=== PATIENT | female | born 1955 | race Caucasian/White ===

== ENCOUNTER 2020-08-22 09:52 | Emergency (ER) | payer MEDICARE, SELFPAY ==
--- NOTE | 2020-08-22 10:03 | DI.RAD.S_ITS ---
PROCEDURE: XR RIBS RT MIN 3V W CXR 1V INDICATIONS: Right inferior lateral rib pain TECHNIQUE: 2 views of the right ribs were acquired, along with a single view chest. COMPARISON: None. FINDINGS: Limited secondary to motion artifact. Surgical changes and devices: None. Bones and chest wall: No fractures or dislocations. No suspicious bony lesions. Overlying soft tissues appear unremarkable. Lungs and pleura: No pleural effusions or pneumothorax. Lungs appear clear. Mediastinum: Moderate hiatal hernia. Mediastinal contours otherwise appear normal. Heart size is normal. IMPRESSION: 1. Limited examination of the right rib secondary to motion artifact. 2. No definite acute fracture. No osseous lesion. If symptoms and/or clinical suspicion for pathology persist, further assessment with repeat, or advanced imaging (e.g., CT, or bone scan) may be helpful for further assessment. 3. Hiatal hernia. Dictated by: Aman Hernandez M.D. on 08/22/2020 at 10:27 Approved by: Aman Hernandez M.D. on 08/22/2020 at 10:28
[2020-08-22 10:10] VITALS: BP 165/77; PULSE 81; RESP 18; TEMP 36.5; O2SAT 97; BMI 27.3
--- NOTE | 2020-08-22 10:11 | ED_ITS ---
HPI - General Adult General Chief complaint: Back Pain/Injury Stated complaint: 5-6 days ago possibly cracked rib, breathing hurts Time Seen by Provider: 08/22/20 10:03 Source: patient Mode of arrival: Ambulatory Limitations: no limitations History of Present Illness HPI narrative: 65-year-old female here for evaluation of right-sided lower ribs/lower back discomfort. States that the symptoms started several days ago after she spent an extended amount of time on a riding lawnmower trying to mow of field that was very uneven. She states that there were times where she thought that she was potentially going to fall off of them over however there was not 1 specific incident where she thought the event occurred. Since that time she has had discomfort and problems with breathing because it hurts for her to take a deep breath. Does have a bruise on her right flank no blood in the urine. Related Data Home Medications Medication Instructions Recorded Confirmed cholecalciferol (vitamin D3) 25 mcg PO DAILY 01/03/20 06/18/20 [Vitamin D3] coenzyme Q10 [CoQ-10] 30 mg PO DAILY 01/03/20 06/18/20 ferrous sulfate [Slow Fe] 142 mg PO DAILY 01/03/20 06/18/20 [id number]-[id number] 1 cap PO DAILY 01/03/20 06/18/20 [Krill Oil ([place] 3 and 6)] lorazepam [Ativan] 1 mg PO DAILY PRN 01/03/20 06/18/20 multivitamin 1 tab PO DAILY 01/03/20 06/18/20 vitamin K2 40 mcg PO DAILY 01/03/20 06/18/20 Al hyd-Mg tr-alg ac-sod bicarb 1 tab PO PRN PRN 02/14/20 06/18/20 [Gaviscon] Previous Rx's Medication Instructions Recorded acetaminophen-codeine 1 tab PO Q4-6H PRN #10 tab 08/22/20 Allergies Allergy/AdvReac Type Severity Reaction Status Date / Time atenolol Allergy Unknown Verified 02/27/20 14:42 Sulfa (Sulfonamide Allergy Unknown Verified 02/27/20 14:42 Antibiotics) Review of Systems Constitutional Constitutional: Denies fever(s) Cardiovascular Cardiovascular: Denies chest pain Comments: Right-sided rib pain Respiratory Respiratory: Reports pain on inspiration Gastrointestinal Gastrointestinal: Reports system reviewed and no additional complaints, except as documented, Denies nausea and Denies vomiting Genitourinary Genitourinary: Denies hematuria Genitourinary: Denies hematuria Musculoskeletal Comments: Right-sided flank/back discomfort. Integumentary/Breasts Comments: Bruising over the right flank Neurologic Neurologic: Reports system reviewed and no additional complaints, except as documented Hematologic/Lymphatic On Anticoagulants: No Allergic/Immunologic Allergic/Immunologic: Reports system reviewed and no additional complaints, except as documented Patient History Medical History Iron deficiency anemia Surgical History (Updated 04/10/20 @ 16:47 by Reji Chavez MD) History of cardiac radiofrequency ablation Hx of hysterectomy Family History Mother Hypertension Heart disease Stroke Grandfather Diabetes mellitus Social History marital status: household members: spouse occupational status: previously employed Smoking Status: Never smoker alcohol intake: current substance use type: does not use Smoking Status: Never smoker Exam Initial Vital Signs Initial Vital Signs: Vital Signs Temperature 97.7 F 08/22/20 10:10 Pulse Rate 81 08/22/20 10:10 Respiratory Rate 18 08/22/20 10:10 Blood Pressure 165/77 H 08/22/20 10:10 Pulse Oximetry 97 08/22/20 10:10 Const General: cooperative and comfortable Limitations: mental status not altered HENMT Head: normal to inspection Resp Effort & Inspection: normal respiratory effort Auscultation: clear to auscultation bilaterally Cardio Rate: regular rate Rhythm: regular rhythm Skin Other: Bruise over the right posterior axillary line inferior ribs. Neuro General: patient alert, patient awake and patient oriented x3 Cognition: normal cognition Speech: speech normal Extrem General: normal to inspection and capillary refill normal Psych Appearance: grossly normal and well kempt Course Orders Ordered: ED Orders 08/22/20 10:03 XR ribs RT min 3V w CXR1V Stat Vital Signs Vital signs: Vital Signs - 8 hr 08/22/20 10:10 Temperature 97.7 F Pulse Rate 81 Respiratory Rate 18 Blood Pressure 165/77 H Pulse Oximetry 97 Medical Decision Making Imaging Data Rib x-rays: Radiologist's Impression: [address] [id number] ReportSigned Patient: Lissette Cardoso CMR#: [id number]: 5Acct:[id number]/Sex: 65 / FDate of Service: 08/22/20Loc: EDAccession Number: [id number] Procedure: XR ribs RT min 3V w CXR1V Ordering Provider: Kory Bhatti D.O. PROCEDURE: XR RIBS RT MIN 3V W CXR 1V INDICATIONS: Right inferior lateral rib pain TECHNIQUE: 2 views of the right ribs were acquired, along with a single view chest. COMPARISON: None. FINDINGS: Limited secondary to motion artifact. Surgical changes and devices: None. Bones and chest wall: No fractures or dislocations. No suspicious bony lesions. Overlying soft tissues appear unremarkable. Lungs and pleura: No pleural effusions or pneumothorax. Lungs appear clear. Mediastinum: Moderate hiatal hernia. Mediastinal contours otherwise appear normal. Heart size is normal. IMPRESSION: 1. Limited examination of the right rib secondary to motion artifact. 2. No definite acute fracture. No osseous lesion. If symptoms and/or clinical suspicion for pathology persist, further assessment with repeat, or advanced imaging (e.g., CT, or bone scan) may be helpful for further assessment. 3. Hiatal hernia. Dictated by: Aman Hernandez M.D. on 08/22/2020 at 10:27 Approved by: Aman Hernandez M.D. on 08/22/2020 at 10:28 [facility] Narrative Medical decision making narrative: Patient did not have a specific incident that caused her symptoms to happen. She does have bruising on the posterior aspect of the right flank. I suspect that this is a contusion from the bouncing that she did while mowing the field the other day. There were no obvious rib fractures/displaced rib fractures on the x-ray. No underlying lung issues. I did discuss with her the findings of the x-ray. We did discuss the possibility of a nondisplaced rib fracture versus a rib contusion. Will send home with symptom control. We did discuss the importance of deep breathing and coughing to avoid complications such as pneumonia. Patient did expressed understanding and agreement. Discharge Plan Departure Patient Disposition: Home Clinical Impression: Contusion of rib on right side, Contusion of skin Instructions: DI for Rib Contusion Activity Restrictions/Additional Instructions: There were no displaced fractures noted on the x-rays however this does not eliminate the possibility of a nondisplaced fracture. Take the pain medication as needed. Be sure that you occasionally take a deep breath or cough. This will help with preventing pneumonia. If your pain worsens or you start to develop fevers please return to the emergency department. Contact your primary provider for follow-up. Prescriptions: New acetaminophen-codeine 300-30 mg tablet 1 tab PO Q4-6H PRN (Reason: pain) Qty: 10 RF: 0 No Action multivitamin Tablet 1 tab PO DAILY RF: 0 lorazepam [Ativan] 1 mg Tablet 1 mg PO DAILY PRN (Reason: Anxiety) RF: 0 coenzyme Q10 [CoQ-10] 30 mg Capsule 30 mg PO DAILY RF: 0 cholecalciferol (vitamin D3) [Vitamin D3] 25 mcg (1,000 unit) Tablet 25 mcg PO DAILY RF: 0 Krill Oil ([place] 3 and 6) 1000-130(40-80) mg Capsule 1 cap PO DAILY RF: 0 vitamin K2 40 mcg Tablet 40 mcg PO DAILY RF: 0 Slow Fe 142 mg (45 mg iron) Tablet Extended Release 142 mg PO DAILY RF: 0 Gaviscon 80-14.2 mg Tablet,Chewable 1 tab PO PRN PRN (Reason: Abdominal Pain) RF: 0 Referrals: Dell Russell DO [Primary Care Provider] -
[2020-08-22 11:13] VITALS: BP 143/65; PULSE 65; RESP 20; O2SAT 98
[2020-08-22] MEDS: CODEINE/ACETAMINOPHEN 30/300 TABLET 1 TAB PO (11:15)
--- NOTE | 2020-08-23 13:39 | PC.NURSE ---
Provider summary sent to [facility] as pt is there for further care / follow up. [phone]
== END 2020-08-22 11:24 | disposition home or self-care (01) ==
PROVIDERS: Emergency Provider Emergency Medicine; PCP Family Medicine
DX: S20.211A Contusion of right front wall of thorax, initial encounter (principal)
CPT/HCPCS: 71101; 99283

== ENCOUNTER 2020-08-27 12:32 | Emergency (ER) | payer MEDICARE, SELFPAY ==
[2020-08-27 12:48] VITALS: BP 176/106; PULSE 79; RESP 18; TEMP 36.7; O2SAT 100; BMI 27.3
--- NOTE | 2020-08-27 12:51 | ED.BACK ---
HPI - Back Pain/Injury General Chief Complaint: Back Pain/Injury Stated Complaint: BACK RIGHT SIDE RIB PAIN Time Seen by Provider: 08/27/20 12:42 Source: patient Mode of arrival: Ambulatory Limitations: no limitations History of Present Illness HPI Narrative: Patient is a 65-year-old female who was seen by myself in the emergency department just under 1 week ago for evaluation of discomfort in her right-sided ribs after spending an excessive amount of time riding a lawnmower on a bumpy field. There was no one specific incident that caused her discomfort. She did have a bruise over that area. Rib x-rays did not show any signs of fracture. Was sent home with Tylenol 3. Couple days later she was seen by another provider and walk-in clinic and received more these medicines. She returned she emergency department today for continued discomfort but she with palpation movement and deep breathing. Related Data Home Medications Medication Instructions Recorded Confirmed cholecalciferol (vitamin D3) 25 mcg PO DAILY 01/03/20 06/18/20 [Vitamin D3] coenzyme Q10 [CoQ-10] 30 mg PO DAILY 01/03/20 06/18/20 ferrous sulfate [Slow Fe] 142 mg PO DAILY 01/03/20 06/18/20 sitpz-[id number]-avh-ulh-bh0-jpt-astx 1 cap PO DAILY 01/03/20 06/18/20 [Krill Oil ([place] 3 and 6)] lorazepam [Ativan] 1 mg PO DAILY PRN 01/03/20 06/18/20 multivitamin 1 tab PO DAILY 01/03/20 06/18/20 vitamin K2 40 mcg PO DAILY 01/03/20 06/18/20 Al hyd-Mg tr-alg ac-sod bicarb 1 tab PO PRN PRN 02/14/20 06/18/20 [Gaviscon] Previous Rx's Medication Instructions Recorded acetaminophen-codeine 1 tab PO Q4-6H PRN #10 tab 08/22/20 acetaminophen-codeine 1 tab PO Q6H PRN #10 tab 08/27/20 Allergies Allergy/AdvReac Type Severity Reaction Status Date / Time atenolol Allergy Unknown Verified 08/27/20 12:51 Sulfa (Sulfonamide Allergy Unknown Verified 08/27/20 12:51 Antibiotics) Review of Systems Constitutional Constitutional: Reports system reviewed and no additional complaints, except as documented Cardiovascular Cardiovascular: Denies chest pain Respiratory Respiratory: Reports pain on inspiration Gastrointestinal Gastrointestinal: Reports system reviewed and no additional complaints, except as documented Musculoskeletal Comments: Right-sided rib pain Integumentary/Breasts Skin/Breast: Denies rash Neurologic Neurologic: Reports system reviewed and no additional complaints, except as documented Hematologic/Lymphatic Hematologic/Lymphatic: Reports system reviewed and no additional complaints, except as documented Allergic/Immunologic Allergic/Immunologic: Reports system reviewed and no additional complaints, except as documented Patient History Medical History Iron deficiency anemia Surgical History (Updated 04/10/20 @ 16:47 by Reji Chavez MD) History of cardiac radiofrequency ablation Hx of hysterectomy Family History Mother Hypertension Heart disease Stroke Grandfather Diabetes mellitus Social History marital status: household members: spouse occupational status: previously employed Smoking Status: Never smoker alcohol intake: current substance use type: does not use Smoking Status: Never smoker Substance Use Type: does not use Exam Initial Vital Signs Initial Vital Signs: Vital Signs Temperature 98.1 F 08/27/20 12:48 Pulse Rate 79 08/27/20 12:48 Respiratory Rate 18 08/27/20 12:48 Blood Pressure 176/106 H 08/27/20 12:48 Pulse Oximetry 100 08/27/20 12:48 Const General: cooperative Limitations: mental status not altered HENMT Head: normal to inspection and normocephalic Resp Effort & Inspection: normal respiratory effort Cardio Rate: regular rate GI Inspection: non-distended Palpation: soft and No tender Back/Spine/Pelvis Back: CVA tenderness right Skin Other: Bruising that was there couple days ago has improved Neuro General: patient alert and patient awake Cognition: normal cognition Speech: speech normal Extrem General: normal to inspection Psych Appearance: grossly normal and well kempt Course Orders Ordered: ED Orders 08/27/20 12:51 CT chest wo con Stat Vital Signs Vital signs: Vital Signs - 8 hr 08/27/20 12:48 08/27/20 13:46 Temperature 98.1 F Pulse Rate 79 63 Respiratory Rate 18 Blood Pressure 176/106 H 146/77 H Pulse Oximetry 100 98 MDM - Back Pain/Injury Imaging Data CT scan - chest: Radiologist's Impression: [facility] [place] [id number] Scan ReportSigned Patient: Lissette Cardoso CMR#: [id number]: 5Acct:[id number]/Sex: 65 / FDate of Service: 08/27/20Loc: EDAccession Number: [id number] Procedure: CT chest wo con Ordering Provider: Kory Bhatti D.O. PROCEDURE: CT CHEST WO CON INDICATIONS: Shortness of breath with right-sided rib pain after injury TECHNIQUE: Noncontrast 5 mm thick sections acquired from the pulmonary apices to the posterior costophrenic angles. 1 mm lung window, 5 mm thick coronal and sagittal and 7 mm axial MIP reformats were then acquired. For radiation dose reduction, the following was used: automated exposure control, adjustment of mA and/or kV according to patient size. COMPARISON: [facility], CR, XR RIBS RT MIN 3V W CXR 1V, 08/22/2020, 10:07. FINDINGS: Image quality: Good. Lungs and pleura: Mild bibasilar atelectasis. Left upper lobe pulmonary nodule measuring 2 mm, (3/87). No pleural effusions or pneumothorax. Central and peripheral airways are patent and normal in caliber. Mediastinum: Heart size is normal. No pericardial effusion. No mediastinal adenopathy by size criteria. Thoracic aorta and central pulmonary arteries are normal in size. Esophagus is normal in caliber. Moderate hiatal hernia. Bones and chest wall: No suspicious bony lesions. Nondisplaced right posterior lateral 10th rib fracture, (2/60). No callus formation. Motion artifact at the 9th rib limits evaluation. No vertebral body compression fractures. No axillary or supraclavicular adenopathy by size criteria. Thyroid gland is unremarkable. Abdomen: Small well-circumscribed hepatic hypodensities which have the appearance of cysts. Possible nonobstructing left kidney stone. Visualized upper abdominal solid organs and bowel loops appear normal in the absence of contrast. IMPRESSION: 1. Nondisplaced right posterior lateral 10th rib fracture. 2. Mild dependent atelectasis. 3. No pleural effusion. 4. Moderate hiatal hernia. Dictated by: Pérez Victoria M.D. on 08/27/2020 at 13:57 Approved by: Pérez Victoria M.D. on 08/27/2020 at 14:09 [facility] Narrative Medical decision making narrative: CT scan today does show a isolated nondisplaced 10th rib fracture on the right. This does correspond to the location for she is having discomfort. Underlying lung is unremarkable. I did inform her of this finding. I again reiterated the importance of follow-up and what to return to the emergency department for with regard to worsening conditions such as pneumonia. She was given an incentive spirometer and instructed on its use by respiratory therapy. I will refill her Tylenol 3 however she was informed that she needed to make contact with her primary doctor for a longer term prescription of this if it is needed. She expressed understanding and agreement. Discharge Plan Departure Patient Disposition: Home Clinical Impression: Right rib fracture Instructions: DI for Rib Fracture Activity Restrictions/Additional Instructions: The CT scan today does show a nondisplaced rib fracture of the 10th rib on the right. This does correspond to where your having discomfort. This is a nonsurgical issue. I will refill a short course of your pain medicine however longer term course of pain medicine will need to come from your primary provider. I recommend that you make contact with your primary doctor to discuss a follow-up appointment. You also need to discuss the other incidental findings noted on the CT scan today such as the pulmonary nodule in your left lung which is unrelated to the rib fracture on the right. Your prescription was electronically transmitted to [facility] in [place]. Prescriptions: New acetaminophen-codeine 300-30 mg tablet 1 tab PO Q6H PRN (Reason: pain) Qty: 10 RF: 0 No Action multivitamin Tablet 1 tab PO DAILY RF: 0 lorazepam [Ativan] 1 mg Tablet 1 mg PO DAILY PRN (Reason: Anxiety) RF: 0 coenzyme Q10 [CoQ-10] 30 mg Capsule 30 mg PO DAILY RF: 0 cholecalciferol (vitamin D3) [Vitamin D3] 25 mcg (1,000 unit) Tablet 25 mcg PO DAILY RF: 0 Krill Oil ([place] 3 and 6) 1000-130(40-80) mg Capsule 1 cap PO DAILY RF: 0 vitamin K2 40 mcg Tablet 40 mcg PO DAILY RF: 0 Slow Fe 142 mg (45 mg iron) Tablet Extended Release 142 mg PO DAILY RF: 0 Gaviscon 80-14.2 mg Tablet,Chewable 1 tab PO PRN PRN (Reason: Abdominal Pain) RF: 0 acetaminophen-codeine 300-30 mg tablet 1 tab PO Q4-6H PRN (Reason: pain) Qty: 10 RF: 0 Referrals: Dell Russell DO [Primary Care Provider] -
[2020-08-27 13:46] VITALS: BP 146/77; PULSE 63; O2SAT 98
[2020-08-27 14:00] VITALS: BP 132/73
--- NOTE | 2020-08-27 14:25 | PC.NURSE ---
RT with patient for IS teaching
[2020-08-27 14:30] VITALS: BP 150/79; PULSE 65; RESP 22; O2SAT 98
[2020-08-27 14:31] VITALS: O2SAT 98
== END 2020-08-27 14:53 | disposition home or self-care (01) ==
PROVIDERS: Emergency Provider Emergency Medicine; PCP Family Medicine
DX: S20.211A Contusion of right front wall of thorax, initial encounter (principal); R06.02 Shortness of breath; X58.XXXA Exposure to other specified factors, initial encounter
CPT/HCPCS: 71250; 99283; 99284

== ENCOUNTER 2020-10-24 09:59 | Emergency (ER) | payer MEDICARE, SELFPAY ==
[2020-10-24 10:26] VITALS: BP 150/78; PULSE 73; RESP 14; TEMP 36.1; O2SAT 98; BMI 26.6
== END 2020-10-24 12:37 | disposition left against medical advice (07) ==
PROVIDERS: Emergency Provider Emergency Medicine; PCP Family Medicine
CPT/HCPCS: 99281

== ENCOUNTER → 2021-05-06 12:29 | Outpatient (CLI) | payer MEDICARE, SELFPAY ==
--- NOTE | 2021-05-06 12:35 | DI.CT.S_ITS ---
PROCEDURE: CT CHEST WO CON INDICATIONS: Other nonspecific abnormal finding of lung field TECHNIQUE: Noncontrast 5 mm thick sections acquired from the pulmonary apices to the posterior costophrenic angles. 1 mm lung window, 5 mm thick coronal and sagittal and 7 mm axial MIP reformats were then acquired. For radiation dose reduction, the following was used: automated exposure control, adjustment of mA and/or kV according to patient size. COMPARISON: [facility], CT, CT CHEST WO CON, 08/27/2020, 13:27. FINDINGS: Image quality: Excellent. Lungs and pleura: The 2 mm nodule in the left upper lobe (series 4, image 65) appears unchanged. There is a 3 mm nodule in the left lower lobe (series 4, image 214), also unchanged. There are subpleural scars and atelectasis in right middle lobe, lingula, and both lower lobes. No acute air space opacities. No pleural effusions or pneumothorax. Central and peripheral airways are patent and normal in caliber. Mediastinum: Heart size is normal. No pericardial effusion. No mediastinal adenopathy by size criteria. Thoracic aorta and central pulmonary arteries are normal in size. Esophagus is normal in caliber. There is a large hiatal hernia. Bones and chest wall: No suspicious bony lesions. No vertebral body compression fractures. Healed right 10th rib fracture is noted. No axillary or supraclavicular adenopathy by size criteria. Thyroid gland is normal. Abdomen: There are multiple small indeterminate low-density nodules in liver, most likely hepatic cysts. A 3 mm stone is seen in the superior pole of the left kidney.. IMPRESSION: 1. Small left lung nodules since 08/27/2020. Please see enclosed follow-up recommendation. 2. Large hiatal hernia. 3. A 3 mm nonobstructive left renal stone. 4. Multiple small indeterminate hepatic hypodensities are most likely cysts. Fleischner Society criteria for SOLID lung nodule followup. Nodule size (mm)Low-risk patientHigh-risk patient?4No follow-up neededFollow-up at 12 mo; if no change, no further follow-up>2-1Njaeco-ve CT at 12 mo; if no change, no further follow-up needed.Initial follow-up CT at 6-12 mo, then 18-24 mo if no change. >6-8Initial follow-up CT at 6-12 mo, then 18-24 mo if no change. Initial follow-up CT at 3-6 mo, then 9-12 mo and 24 mo if no change. >8Follow-up CT at 3, 9, 24 mo. Or PET and/or biopsy.Same as for low-risk pts. Dictated by: Nichole Andrade M.D. on 05/06/2021 at 14:33 Approved by: Nichole Andrade M.D. on 05/06/2021 at 14:40
== END ==
PROVIDERS: PCP Family Medicine; Referring Provider Family Medicine; Visit Provider Family Medicine
DX: R91.8 Other nonspecific abnormal finding of lung field (principal); K44.9 Diaphragmatic hernia without obstruction or gangrene; N20.0 Calculus of kidney
CPT/HCPCS: 71250

== ENCOUNTER 2021-06-24 10:56 | Emergency (ER) | payer MEDICARE, SELFPAY ==
[2021-06-24 11:08] VITALS: BP 171/102; PULSE 98; RESP 20; TEMP 36.9; O2SAT 99; BMI 28.0
== END 2021-06-24 11:22 | disposition left against medical advice (07) ==
PROVIDERS: Emergency Provider Emergency Medicine; PCP Family Medicine
DX: Z53.21 Procedure and treatment not carried out due to patient leaving prior to being seen by health care provider (principal)
CPT/HCPCS: 99281

== ENCOUNTER 2021-06-25 10:13 | Emergency (ER) | payer MEDICARE, SELFPAY ==
[2021-06-25 10:41] VITALS: BP 136/79; PULSE 80; RESP 18; TEMP 36.5; O2SAT 99; BMI 27.3
--- NOTE | 2021-06-25 10:55 | PC.NURSE ---
describes occasional mild pins and needles
--- NOTE | 2021-06-25 11:00 | DI.US.S_ITS ---
PROCEDURE: US PERIPH VENOUS UP EXTREM LT INDICATIONS: LUE EDEMA TECHNIQUE: Real-time imaging, as well as color and pulse Doppler interrogation, was performed of the left upper extremity deep veins from the inferior neck to the antecubital fossa. COMPARISON: None. FINDINGS: The internal jugular vein, visualized portions of the subclavian vein, axillary, and brachial veins are free of intraluminal thrombus. Where physically possible, the veins are normally compressible. Color and pulse Doppler demonstrate normal intraluminal flow, with expected phasicity and pulsatility. Additional scanning of the cephalic and basilic veins of the superficial system demonstrate normal compressibility, without thrombus. IMPRESSION: No DVT in the left upper extremity. Dictated by: Nichole Andrade M.D. on 06/25/2021 at 11:35 Approved by: Nichole Andrade M.D. on 06/25/2021 at 11:35
--- NOTE | 2021-06-25 11:01 | ED.UPPEXIN ---
HPI - Extremity Injury (Upper) General Chief Complaint: Extremity Injury, Upper Stated Complaint: fluid buildup left arm Time Seen by Provider: 06/25/21 10:56 Source: patient Mode of arrival: Ambulatory History of Present Illness HPI narrative: Patient had her blood pressure checked last at the clinic on the left arm. Since then has had edema to the elbow area and biceps/triceps area. No bruising seen. No chest pain no dyspnea. No numbness tingling or weakness. Related Data Home Medications Medication Instructions Recorded Confirmed cholecalciferol (vitamin D3) 25 25 mcg PO DAILY 01/03/20 11/26/20 mcg (1,000 unit) tablet (Vitamin D3) coenzyme Q10 30 mg capsule (CoQ-10) 30 mg PO DAILY 01/03/20 11/26/20 ferrous sulfate 142 mg (45 mg 142 mg PO DAILY 01/03/20 11/26/20 iron) tablet,extended release (Slow Fe) krill oil 1,000 mg-om3 130 mg-dha 1 cap PO DAILY 01/03/20 11/26/20 40 mg-epa 80 or-db0-ldb-astax cap (Krill Oil ([place] 3 and 6)) lorazepam 1 mg tablet (Ativan) 1 mg PO DAILY PRN 01/03/20 11/26/20 multivitamin 1 tab PO DAILY 01/03/20 11/26/20 vitamin K2 40 mcg tablet 40 mcg PO DAILY 01/03/20 11/26/20 Al hyd-Mg tr-alg ac-sod bicarb 80 1 tab PO PRN PRN 02/14/20 11/26/20 mg-14.2 mg chewable tablet (Gaviscon) Prilosec 02/25/21 sucralfate 1 gram tablet (Carafate) 1 g PO BID 02/25/21 02/25/21 Previous Rx's Medication Instructions Recorded acetaminophen 300 mg-codeine 30 mg 1 tab PO Q4-6H PRN #10 tab 08/22/20 tablet acetaminophen 300 mg-codeine 30 mg 1 tab PO Q6H PRN #10 tab 08/27/20 tablet Allergies Allergy/AdvReac Type Severity Reaction Status Date / Time atenolol Allergy Unknown Verified 06/24/21 11:08 Sulfa (Sulfonamide Allergy Unknown Verified 06/24/21 11:08 Antibiotics) Review of Systems Review of Systems Narrative: GENERAL: Denies chills, fatigue, malaise, fever, sweats. HEENT: Denies sinus pain, ear pain, sore throat RESPIRATORY: Denies dyspnea, cough CARDIOVASCULAR: Denies chest pain, palpitations GASTROINTESTINAL: Denies nausea, vomiting, abdominal pain : Denies dysuria, frequency, hematuria MUSCULOSKELETAL: denies muscle or bony pain, positive for edema SKIN: Denies rash, skin lesions NEUROLOGIC: Denies weakness, numbness ROS Unobtainable: All systems reviewed & are unremarkable except as noted in HPI and below Patient History Medical History Iron deficiency anemia Surgical History History of cardiac radiofrequency ablation Hx of hysterectomy Family History Mother Hypertension Heart disease Stroke Grandfather Diabetes mellitus Social History marital status: household members: spouse occupational status: previously employed Smoking Status: Never smoker alcohol intake: current substance use type: does not use Smoking Status: Never smoker alcohol intake frequency: 0-2 drinks per day Substance Use Type: does not use Exam Narrative Exam Narrative: GENERAL: in no distress, not toxic not dyspneic HEAD: Normocephalic. EYES: Pupils equal round No scleral icterus. CARDIOVASCULAR: Regular rate and rhythm without murmurs RESPIRATORY: Clear to auscultation. Breath sounds equal bilaterally. No wheezes, rales, or rhonchi. EXTREMITIES: No gross deformities. Examination left upper extremity shoulder to to fingertips exposed. Strong golf manager in radial pulse with light touch intact the deltoid in fingertips and thumb. Nontender elbow wrist and shoulder. Full active range of motion at the elbow. There is dependent edema at the olecranon area. No bruising or ecchymosis. NEURO: AOx4. SKIN: Warm and dry PSYCH: Not anxious, is cooperative Initial Vital Signs Initial Vital Signs: Vital Signs Temperature 97.7 F 06/25/21 10:41 Pulse Rate 80 06/25/21 10:41 Respiratory Rate 18 06/25/21 10:41 Blood Pressure 136/79 06/25/21 10:41 Pulse Oximetry 99 06/25/21 10:41 Course Course Course Narrative: No new issues during course of stay Orders Ordered: ED Orders 06/25/21 11:00 US periph venous up extrem lt Stat Reevaluation(s) Reevaluation #1: Reviewed results with patient. Return precautions reviewed with her. She agrees with trying compression sleeve to the ER for edema and return of fluid. Elevation of the arm as well. She does have a family doctor to follow up with. Time: 11:42 Vital Signs Vital signs: Vital Signs - 8 hr 06/25/21 10:41 06/25/21 12:02 Temperature 97.7 F Pulse Rate 80 67 Respiratory Rate 18 16 Blood Pressure 136/79 134/74 Pulse Oximetry 99 97 MDM - Extremity Injury (Upper) Differential Diagnosis Differential diagnosis: Likely other (Contusion/lymphedema/hematoma/SVT/DVT) Imaging Data US - DVT: Radiologist's Impression: [address] [address] Ultrasound Report Signed Patient: Lissette Cardoso MR#: [id number] : 1955 Acct:[id number] Age/Sex: 65 / F Date of Service: 06/25/21 Loc: ED Accession Number: [id number] ?? Procedure: US periph venous up extrem lt Ordering Provider: Donald Drake MD PROCEDURE:? US PERIPH VENOUS UP EXTREM LT ? INDICATIONS:? LUE EDEMA ? TECHNIQUE:? Real-time imaging, as well as color and pulse Doppler interrogation, was performed of the left upper extremity deep veins from the inferior neck to the antecubital fossa.? ? COMPARISON:? None. ? FINDINGS:? The internal jugular vein, visualized portions of the subclavian vein, axillary, and brachial veins are free of intraluminal thrombus.? Where physically possible, the veins are normally compressible.? Color and pulse Doppler demonstrate normal intraluminal flow, with expected phasicity and pulsatility.? Additional scanning of the cephalic and basilic veins of the superficial system demonstrate normal compressibility, without thrombus.? ? IMPRESSION:? No DVT in the left upper extremity. ? ? Dictated by: Nichole Andrade M.D. on 06/25/2021 at 11:35 ? ? Approved by: Nichole Andrade M.D. on 06/25/2021 at 11:35 ? MDM Narrative Medical decision making narrative: Appropriate for discharge home. Exam and imaging reassuring. No blood work indicated this time. No ecchymosis or bleeding diatheses. No x-rays indicated. No fall. Low suspicion for fracture after use of a blood pressure cuff. Return precautions reviewed with her. She agrees with using a compression sleeve to the arm to help for edema. Discharge Plan Departure Patient Disposition: Home Clinical Impression: Edema, peripheral Instructions: Edema Activity Restrictions/Additional Instructions: See family doctor within a week for recheck. May use compression arm sleeve as we discussed to help return fluid away from your arm. Keep arm elevated at rest. Return if worse or for any questions or concerns. Prescriptions: No Action multivitamin Tablet 1 tab PO DAILY 0RF lorazepam [Ativan] 1 mg Tablet 1 mg PO DAILY PRN (Reason: Anxiety) 0RF coenzyme Q10 [CoQ-10] 30 mg Capsule 30 mg PO DAILY 0RF cholecalciferol (vitamin D3) [Vitamin D3] 25 mcg (1,000 unit) Tablet 25 mcg PO DAILY 0RF Krill Oil ([place] 3 and 6) 1000-130(40-80) mg Capsule 1 cap PO DAILY 0RF vitamin K2 40 mcg Tablet 40 mcg PO DAILY 0RF Slow Fe 142 mg (45 mg iron) Tablet Extended Release 142 mg PO DAILY 0RF Gaviscon 80-14.2 mg Tablet,Chewable 1 tab PO PRN PRN (Reason: Abdominal Pain) 0RF sucralfate [Carafate] 1 gram Tablet 1 g PO BID 0RF Prilosec 0RF acetaminophen-codeine 300-30 mg tablet 1 tab PO Q4-6H PRN (Reason: pain) Qty: 10 0RF acetaminophen-codeine 300-30 mg tablet 1 tab PO Q6H PRN (Reason: pain) Qty: 10 0RF Referrals: Ammon Isbell MD [Primary Care Provider] -
[2021-06-25 12:02] VITALS: BP 134/74; PULSE 67; RESP 16; O2SAT 97
== END 2021-06-25 12:05 | disposition home or self-care (01) ==
PROVIDERS: Emergency Provider Emergency Medicine; PCP Family Medicine
DX: R60.0 Localized edema (principal)
CPT/HCPCS: 93971; 99281; 99284